=== PATIENT | female | born 1930 | race Caucasian/White ===

== ENCOUNTER 2017-10-16 09:17 | Emergency (ER) | payer OTHER ==
[~2017-10-16] VITALS: Ht 165.1 cm; Wt 61.2 kg
[~2017-10-16 09:17] MED LIST: [UNRECOGNIZED DRUG - REMARK]
[2017-10-16 09:44] LABS: BASO # 0.1 10*3/uL (0.0-0.1); BASO % 0.4 % (0.0-1.0); EOS # 0.1 10*3/uL (0.0-0.4); EOS % 1.2 % (1.0-4.0); HEMATOCRIT 42.7 % (37.0-47.0); HEMOGLOBIN 13.9 g/dl (12.0-16.0); LYMPH # 1.3 10*3/uL (1.3-4.4); LYMPH % 11.1 % (27.0-41.0); MEAN CELL VOLUME 88.2 fl (81.0-99.0); MEAN CORPUSCULAR HGB 28.7 pg (27.0-31.0); MEAN CORPUSCULAR HGB CONC 32.6 g/dl (33.0-37.0); MEAN PLATELET VOLUME 10.5 fl (9.6-12.3); MONO % 8.7 % (3.0-9.0); NEUT % 78.3 % (47.0-73.0); PLATELET COUNT AUTOMATED 199 10*3/uL (130-400); RED BLOOD COUNT 4.84 10*6/uL (4.10-5.10); RED CELL DISTRI WIDTH 12.5 % (0-14.5); WHITE BLOOD COUNT 11.6 10*3/uL (4.8-10.8)
[2017-10-16 09:53] LABS: ACT PARTIAL THROMBO TIME 23.6 SECONDS (20.8-31.5)
[2017-10-16 10:01] LABS: ALBUMIN 3.8 gm/dl (3.1-4.5); ALKALINE PHOSPHATASE 75 U/L (45-117); BUN 24 mg/dl (7-24); CHLORIDE 106 mmol/L (98-107); CREATININE 1.12 mg/dL (0.55-1.02); POTASSIUM 3.9 mmol/L (3.5-5.1); SGOT/AST 22 IU/L (3-35); SGPT/ALT 23 U/L (12-78); SODIUM 140 mmol/L (136-145); TOTAL PROTEIN 7.1 gm/dL (6.4-8.2)
[2017-10-16 10:03] LABS: TROPONIN I < 0.015 ng/ml (<0.045)
[2017-10-16 10:44] VITALS: BP 154/67
== END 2017-10-16 11:47 | disposition short-term general hospital (02) ==
LOC: ED 09:17
PROVIDERS: Emergency Medicine
DX: I63.9 Cerebral infarction, unspecified (principal); I10 Essential (primary) hypertension; Z98.890 Other specified postprocedural states; Z87.442 Personal history of urinary calculi; Z88.2 Allergy status to sulfonamides; Z88.1 Allergy status to other antibiotic agents

== ENCOUNTER → 2018-10-20 | Outpatient (CLI) | payer OTHER ==
[~2018-10-20] MED LIST changes: +ALENDRONATE SOD70 M1 PO; +AMLODIPINE BESYL5 MG PO; +ASPIRIN CHILDRE81 MG PO; +CALCIUM CARBON600 M4 PO; +CALTRATE 600+D1 EACH PO; +CEFUROXIME AXE250 MG PO; +CENTRUM SILVER1 EAC1 PO; +CENTRUM SILVER1 EACH PO; +CLOPIDOGREL75 MG PO; +FLUDROCORTISON0.1 MG PO; +LIPITOR80 MG PO; +LISINOPRIL20 MG PO; +LOPRESSOR25 MG PO; +MOBIC15 MG PO; +PANTOPRAZOLE SO40 MG PO; +POTASSIUM CHLO20 ME4 PO; +PRINIVIL10 MG PO; +TRAMADOL HCL50 MG PO; +TYLENOL EXTRA500 MG PO; +VOLTAREN100 GM T
[2018-10-24 13:07] LABS: ACHR BLOCKING AB 085926 12 % (0-25)
[2018-10-29 16:08] LABS: ACHR MODULATING AB 085933 <12 % (0-20)
== END | disposition home or self-care (01) ==
LOC: LAB 10:21
PROVIDERS: Psychiatry & Neurology Neurology
DX: H53.2 Diplopia (principal)

== ENCOUNTER → 2019-06-04 | Outpatient (CLI) | payer OTHER | END | disposition home or self-care (01) | LOC: RESCLI 13:14 | DX: Z13.39 Encounter for screening examination for other mental health and behavioral disorders (principal); Z76.89 Persons encountering health services in other specified circumstances; I10 Essential (primary) hypertension; I95.1 Orthostatic hypotension; M81.0 Age-related osteoporosis without current pathological fracture; E78.5 Hyperlipidemia, unspecified; I63.9 Cerebral infarction, unspecified; K21.9 Gastro-esophageal reflux disease without esophagitis; D64.9 Anemia, unspecified; Z79.899 Other long term (current) drug therapy; Z88.8 Allergy status to other drugs, medicaments and biological substances ==

== ENCOUNTER → 2019-08-28 | Outpatient (CLI) | payer OTHER ==
[2019-08-28 10:58] LABS: BASO % 0.5 % (0.0-1.0); EOS # 0.1 10*3/uL (0.0-0.4); EOS % 1.2 % (1.0-4.0); HEMATOCRIT 42.3 % (37.0-47.0); HEMOGLOBIN 13.3 g/dl (12.0-16.0); LYMPH % 27.1 % (27.0-41.0); MEAN CELL VOLUME 90.8 fl (81.0-99.0); MEAN CORPUSCULAR HGB 28.5 pg (27.0-31.0); MEAN CORPUSCULAR HGB CONC 31.4 g/dl (33.0-37.0); MEAN PLATELET VOLUME 10.5 fl (9.6-12.3); MONO # 1.2 10*3/uL (0.1-1.0); MONO % 15.6 % (3.0-9.0); NEUT # 4.2 10*3/uL (2.3-7.9); NEUT % 55.5 % (47.0-73.0); PLATELET COUNT AUTOMATED 259 10*3/uL (130-400); RED BLOOD COUNT 4.66 10*6/uL (4.10-5.10); WHITE BLOOD COUNT 7.5 10*3/uL (4.8-10.8)
[2019-08-28 11:31] LABS: POTASSIUM 5.5 mmol/L (3.5-5.1)
[2019-08-28 11:43] LABS: CREATININE 1.2 mg/dL (0.55-1.02); TOTAL PROTEIN 7.6 gm/dL (6.4-8.2)
[2019-08-28 11:50] LABS: VITAMIN D, 25-HYDROXY 32.8 ng/mL (30-100)
== END | disposition home or self-care (01) ==
LOC: RESCLI 01:52
PROVIDERS: Hospitalist
DX: E78.5 Hyperlipidemia, unspecified (principal); I10 Essential (primary) hypertension; I48.0 Paroxysmal atrial fibrillation; M81.0 Age-related osteoporosis without current pathological fracture; R53.83 Other fatigue; Z86.73 Personal history of transient ischemic attack (TIA), and cerebral infarction without residual deficits; Z79.899 Other long term (current) drug therapy; Z88.8 Allergy status to other drugs, medicaments and biological substances